=== PATIENT | female | born 1980 | race Asian ===

== ENCOUNTER 2020-10-25 12:08 | Inpatient (IN) | payer OTHER, SELFPAY ==
[~2020-10-25] VITALS: Ht 158 cm; Wt 70.8 kg
[2020-10-25] MEDS ORDERED: LACTATED RINGERS 1,000 ML IV SCH (12:25)
[2020-10-25] MEDS ORDERED: PNV91TAB8 PO (12:48)
[2020-10-25 13:09] VITALS: BP 116/80
[2020-10-25 13:56] LABS: BASOPHILS % (AUTO) 0.2 % (0.0-2.0); EOSINOPHILS % (AUTO) 0.9 % (0.0-4.0); HEMATOCRIT 35.9 % (36-48); HEMOGLOBIN 11.8 g/dL (12.0-16.0); LYMPHOCYTES # (AUTO) 1.1 K/uL (2.5-16.5); LYMPHOCYTES % (AUTO) 20.1 % (20.5-51.1); MEAN CORPUSCULAR HEMOGLOBIN 28 pg (27-31); MEAN CORPUSCULAR HGB CONC 33 g/dL (33-37); MEAN CORPUSCULAR VOLUME 85.1 fL (80-94); MONOCYTES # (AUTO) 0.5 K/uL (0.8-1.0); MONOCYTES % (AUTO) 8.7 % (1.7-9.3); NEUTROPHILS # (AUTO) 3.7 K/uL (1.8-7.7); NEUTROPHILS % (AUTO) 70.1 % (42.2-75.2); PLATELET COUNT (AUTO) 177 K/uL (140-450); RED BLOOD CELL COUNT(AUTO) 4.22 MIL/uL (4.20-5.40); RED CELL DISTRIBUTION WIDTH 14.5 % (11.6-13.7); WHITE BLOOD COUNT (AUTO) 5.3 K/uL (4.8-10.8)
[2020-10-25] MEDS ORDERED: fentaNYL citrate 0.05 MG/ML VIAL ONE ×2 (15:03→15:42)
[2020-10-25] MEDS ORDERED: MORPHINE PRES FREE 10 MG/10 ML AMP IV ONE ×2 (15:03→15:42)
[2020-10-25 15:11] LABS: ALBUMIN 2.9 g/dL (3.4-5.0); ANION GAP 11.5 (8-16); CARBON DIOXIDE 26.1 mmol/L (21-32); CREATININE 0.4 mg/dL (0.6-1.3); POTASSIUM 3.6 mmol/L (3.5-5.1); TOTAL BILIRUBIN 0.5 mg/dL (0.0-1.0)
[2020-10-25 15:12] LABS: APPEARANCE,URINE CLEAR (CLEAR); BILIRUBIN,URINE NEGATIVE (NEGATIVE); BLOOD, URINE NEGATIVE (NEGATIVE); COLOR,URINE YELLOW (YELLOW); LEUKOCYTE ESTERASE ,URINE 2+ (NEGATIVE); NITRITE, URINE NEGATIVE (NEGATIVE); UGLUCOSE TRACE (NEGATIVE)
[2020-10-25] MEDS ORDERED: fentaNYL citrate 0.05 MG/ML VIAL IVP PRN (15:30)
[2020-10-25] MEDS ORDERED: ONDANSETRON 4 MG/2 ML VIAL IVP PRN ×2 (15:30)
[2020-10-25] MEDS ORDERED: HYDROmorphone 1 MG/ML AMP IVP PRN (15:30)
[2020-10-25] MEDS ORDERED: MEPERIDINE 25 MG/ML SYR IVP PRN (15:30)
[2020-10-25] MEDS ORDERED: NALOXONE 0.4 MG/ML VIAL IVP PRN ×2 (15:30)
[2020-10-25] MEDS ORDERED: diphenhydrAMINE 50 MG/ML VIAL IVP PRN ×2 (15:30)
[2020-10-25] MEDS ORDERED: OXYTOCIN 10 UNITS/ML VIAL ONE (15:42)
[2020-10-25] MEDS ORDERED: ceFAZolin 1,000 MG VIAL ONE (15:42)
[2020-10-25] MEDS ORDERED: DEXAMETHASONE 4 MG/ML VIAL ONE (15:42)
[2020-10-25] MEDS ORDERED: ONDANSETRON 4 MG/2 ML VIAL ONE (15:42)
[2020-10-25] MEDS ORDERED: PHENYLEPHRINE 10 MG/ML VIAL ONE (15:42)
[2020-10-25] MEDS ORDERED: METHYLERGONOVINE 0.2 MG/ML AMP IM PRN (15:45)
[2020-10-25] MEDS ORDERED: IBUPROFEN 800 MG TAB PO PRN (15:45)
[2020-10-25] MEDS ORDERED: MEASLES, MUMPS, AND RUBELLA 1 VIAL SQVAC PRN (15:45)
[2020-10-25] MEDS ORDERED: KETOROLAC 30 MG/ML VIAL IVP PRN (15:45)
[2020-10-25] MEDS ORDERED: TEMAZEPAM 15 MG CAP PO PRN (15:45)
[2020-10-25] MEDS ORDERED: oxyCODONE/APAP 5/325 MG 1 TAB TAB PO PRN ×2 (15:45)
[2020-10-25] MEDS ORDERED: SIMETHICONE 80 MG TAB.CHEW PO PRN (15:45)
[2020-10-25 15:52] LABS: RBC,URINE 0-5 /HPF (0-5); WBC,URINE 16-25 (MOD) /HPF (0-5)
[2020-10-25] MEDS ORDERED: OXYTOCIN 20 UNITS/LR PREMIX 1,000 ML IV ONE (16:06)
[2020-10-25] MEDS: OXYTOCIN 20 UNITS in LACTATED RINGERS 1,000 ML IV SCH (16:25)
[2020-10-25] MEDS: KETOROLAC 30 MG/ML VIAL IM/IVP SCH (18:07)
[2020-10-25] MEDS ORDERED: DOCUSATE SOD/SENNA 50/8.6 MG 1 TAB PO SCH (21:00)
[2020-10-26] MEDS: KETOROLAC 30 MG/ML VIAL IM/IVP SCH ×3 (00:20→12:52)
[2020-10-26] MEDS ORDERED: OXYTOCIN 20 UNITS/LR PREMIX 1,000 ML IV ONE ×2 (04:16→12:45)
[2020-10-26] MEDS: OXYTOCIN 20 UNITS in LACTATED RINGERS 1,000 ML IV SCH ×2 (04:30→12:52)
[2020-10-26 06:44] LABS: BASOPHILS % (AUTO) 0.1 % (0.0-2.0); HEMOGLOBIN 10.7 g/dL (12.0-16.0); LYMPHOCYTES # (AUTO) 0.9 K/uL (2.5-16.5); LYMPHOCYTES % (AUTO) 7.9 % (20.5-51.1); MEAN CORPUSCULAR HEMOGLOBIN 28 pg (27-31); MEAN CORPUSCULAR HGB CONC 33 g/dL (33-37); MEAN CORPUSCULAR VOLUME 84.2 fL (80-94); MONOCYTES # (AUTO) 0.7 K/uL (0.8-1.0); MONOCYTES % (AUTO) 6.3 % (1.7-9.3); NEUTROPHILS # (AUTO) 9.4 K/uL (1.8-7.7); NEUTROPHILS % (AUTO) 85.7 % (42.2-75.2); PLATELET COUNT (AUTO) 154 K/uL (140-450); RED BLOOD CELL COUNT(AUTO) 3.79 MIL/uL (4.20-5.40); RED CELL DISTRIBUTION WIDTH 14.4 % (11.6-13.7); WHITE BLOOD COUNT (AUTO) 10.9 K/uL (4.8-10.8)
--- NOTE | 2020-10-26 09:04 | NUR ---
PATIENT HAS BEEN SCREENED AND CATEGORIZED LOW NUTRITION RISK. PATIENT WILL BE SEEN WITHIN 7 DAYS OF ADMISSION. 11/01/[address]
[2020-10-26] MEDS ORDERED: FLU VACCINE QS2020-21 0.5 ML SYR IMVAC PRN (22:20)
== END 2020-10-27 16:35 | disposition home or self-care (01) | DRG 786 ==
LOC: MLD 12:08 → OBSVTOIN 12:15 → MFCC 16:03
PROVIDERS: ADMIT Obstetrics & Gynecology; ATTEND Obstetrics & Gynecology
PROC: 10D00Z1 Extraction of Products of Conception, Low, Open Approach (ICD-10-PCS; principal; 2020-10-25 15:30)
DX: O36.8130 Decreased fetal movements, third trimester, not applicable or unspecified (principal); O60.23X0 Term delivery with preterm labor, third trimester, not applicable or unspecified; Z20.828 Contact with and (suspected) exposure to other viral communicable diseases; Z37.0 Single live birth; Z3A.38 38 weeks gestation of pregnancy
CPT/HCPCS: 36415; 51702; 80053; 81001; 85025; 86592; 86886; 86900; 86901; 87086; G0378; J0690; J1100; J1200; J1885; J2270; J2370; J2405; J2590; J3010; J7060; J7120